=== PATIENT | female | born 1990 | race Two or more races ===

== ENCOUNTER → 2019-09-08 | Outpatient (CLI) | payer OTHER ==
[~2019-09-08] MED LIST: OMNIPAQUE 350 MG/ML, 100ML BOTTLE ONE
== END | disposition home or self-care (01) ==
LOC: RAD 06:42
PROVIDERS: ATTEND Nurse Practitioner
DX: K76.0 Fatty (change of) liver, not elsewhere classified (principal); N83.12 Corpus luteum cyst of left ovary; I51.7 Cardiomegaly
CPT/HCPCS: 74177; Q9967